=== PATIENT | female | born 1995 | race Caucasian/White ===

== ENCOUNTER 2020-11-18 23:44 | Emergency (ER) | payer OTHER ==
[2020-11-19 01:20] LABS: BASOPHIL 0.3 % (0-2); EOSINOPHIL 1.3 % (0-5); HCT 39.8 % (37.0-47.0); HGB 12.9 g/dl (12.5-16.0); MCH 29.9 pg (25.0-31.0); MCHC 32.4 g/dL (32.0-36.0); MCV 92.3 fL (78.0-100.0); MONOCYTE 7.2 % (0-12); MPV 10.6 fL (6.0-9.5); NEUTROPHIL 66.8 % (41-80); NRBC 0; PLT 224 K/uL (150-400); RBC 4.31 M/uL (4.20-5.40); RDW 13.4 % (11.5-14.0); WBC 11.2 K/uL (4.0-10.5)
[2020-11-19 01:36] LABS: IRON % SATURATION 15.4 %SAT (20-50)
[2020-11-19 01:53] LABS: ALBUMIN 3.3 g/dL (3.4-5.0); BILIRUBIN - TOTAL 0.3 mg/dL (0.2-1.0); BUN/CREAT RATIO (CALC) 19.1 RATIO; C-REACTIVE PROTEIN 2.1 mg/dL (<=0.90); CREATININE 0.68 mg/dL (0.51-0.95); GLOBULIN (CALCULATION) 4.2 g/dL; MAGNESIUM 2.1 mg/dL (1.8-2.4); POTASSIUM 3.3 mmol/L (3.5-5.1); TOTAL PROTEIN 7.5 g/dL (6.4-8.2)
[2020-11-19] MEDS ORDERED: FEOSOL325 MG PO (02:34)
== END 2020-11-19 03:00 | disposition home or self-care (01) ==
LOC: FER 23:44
PROVIDERS: Emergency Medicine
DX: E61.1 Iron deficiency (principal); Z86.16 Personal history of COVID-19
CPT/HCPCS: 36415; 80053; 82728; 83540; 83550; 83615; 83735; 83880; 84145; 84443; 85025; 85379; 86140; 93005